=== PATIENT | female | born 1990 | race Caucasian/White ===

== ENCOUNTER → 2018-07-17 13:44 | Outpatient (CLI) | payer OTHER, SELFPAY ==
--- NOTE | 2018-07-17 13:46 | DI.US.S_ITS ---
PROCEDURE: US PELVIC COMPLETE INDICATIONS: RIGHT SIDE PELVIC PAIN TECHNIQUE: Real-time scanning was performed of the pelvic organs, with image documentation. Additional endovaginal scanning was necessary due to incomplete visualization of the adnexal and endometrial structures by transabdominal scanning. COMPARISON: None. FINDINGS: Transabdominal scanning: Limited scanning through the kidneys shows no hydronephrosis. No pathologic free abdominal or pelvic fluid. Endovaginal scanning: Uterus: Uterus is normal in size at 3.8 x 3.9 x 7.3 cm, anteverted. The endometrium measures 4.0 mm in combined thickness. Ovaries: Right ovary measures 2.4 x 1.1 x 1.8 cm and the left measures 1.8 x 1.2 x 1.6 cm. IMPRESSION: Source of current pelvic pain is not identified. Anteverted normal appearing uterus, normal appearing ovaries. Dictated by: Magdy Cazares M.D. on 07/17/2018 at 16:24 Approved by: Magdy Cazares M.D. on 07/17/2018 at 16:24
== END ==
PROVIDERS: Family Provider Family Medicine; PCP Family Medicine
DX: R10.2 Pelvic and perineal pain (principal); Z87.42 Personal history of other diseases of the female genital tract
CPT/HCPCS: 76830; 76856

== ENCOUNTER → 2018-11-06 15:15 | Outpatient (CLI) | payer OTHER, SELFPAY ==
[2018-11-06 15:58] LABS: Add Manual Diff / Slide Review NO; Basophils Absolute Auto 0 /uL (0-100); Basophils Percent Auto 0.5 % (0-2); Eosinophils Absolute Auto 100 /uL (0-450); Eosinophils Percent Auto 0.8 % (2-4); Hematocrit 36.9 % (36-46); Hemoglobin 12.2 g/dL (12.0-16.0); Lymphocytes Absolute Auto 3300 /uL (1100-4500); Lymphocytes Percent Auto 46.4 % (25-40); Mean Corpuscular HGB Conc 33.1 % (30-36); Mean Corpuscular Hemoglobin 26.7 PG (26-34); Mean Corpuscular Volume 80.6 fL (80-100); Monocytes Absolute Auto 400 /uL (0-900); Monocytes Percent Auto 6.2 % (3-14); Neutrophils Absolute Auto 3300 /uL (1500-7000); Neutrophils Percent Auto 46.1 % (50-75); Platelet Count 195 X10^3/uL (150-400); Red Blood Cell Count 4.57 X10^6/uL (4.0-5.2); Red Cell Distribution Width 15.6 % (11.6-14.8); White Blood Cell Count 7.2 X10^3/uL (4.5-11.0)
[2018-11-06 16:19] LABS: Alanine Aminotransferase 39 IU/L (9-52); Albumin 4.1 g/dL (3.5-5.0); Albumin Globulin Ratio 1.3 (1.0-2.8); Alkaline Phosphatase 43 U/L (38-126); Aspartate Aminotransferase 21 IU/L (14-36); BUN Creatinine Ratio 24.3 (6-22); Bilirubin Total 0.3 mg/dL (0.2-1.3); Blood Urea Nitrogen 17 mg/dL (7-17); Calcium 9.1 mg/dL (8.4-10.2); Carbon Dioxide 25 mmol/L (22-32); Chloride 102 mmol/L (98-107); Cholesterol 175 mg/dL (140-199); Estimated Glomerular Filt Rate > 60.0 mL/min (>60); Gamma Glutamyl Transpeptidase 23 U/L (12-43); Globulin 3.2 g/dL (1.7-4.1); Glucose 97 mg/dL (70-100); HDL Cholesterol 63 mg/dL (40-60); HEMOLYSIS < 15 (0-50); LDL Cholesterol Calculated 82 mg/dL (<100); Potassium 4.2 mmol/L (3.4-5.1); Sodium 138 mmol/L (137-145); Total Protein 7.3 g/dL (6.3-8.2); Triglycerides 150 mg/dL (35-150)
[2018-11-06 16:24] LABS: Erythrocyte Sedimentation Rate 40 MM/HR (0-20)
[2018-11-06 16:35] LABS: Follicle Stimulating Hormone 1.37 mIU/mL; HCG Quantitative /Beta subunit < 2.39 mIU/mL
[2018-11-06 16:36] LABS: Vitamin D 25 Hydroxy (D3) 27.2 ng/mL (30.0-100.0)
[2018-11-06 16:50] LABS: TSH w/ Reflex to FT4 1.96 uIU/mL (0.47-4.68)
== END ==
PROVIDERS: Family Provider Student in an Organized Health Care Education/Training Program; Visit Provider Student in an Organized Health Care Education/Training Program
DX: N92.6 Irregular menstruation, unspecified (principal); R10.9 Unspecified abdominal pain; Z13.220 Encounter for screening for lipoid disorders
CPT/HCPCS: 36415; 80053; 80061; 82306; 82977; 83001; 84443; 84702; 85025; 85651

== ENCOUNTER → 2018-11-18 15:17 | Outpatient (CLI) | payer OTHER, SELFPAY ==
--- NOTE | 2018-11-18 15:19 | DI.CT.S_ITS ---
PROCEDURE: CT ABDOMEN PELVIS WO CON INDICATIONS: Abdominal pain TECHNIQUE: Noncontrast 5 mm thick sections acquired from the diaphragms to the symphysis. 5 mm coronal and sagittal reformats were then performed. For radiation dose reduction, the following was used: automated exposure control, adjustment of mA and/or kV according to patient size. COMPARISON: None. FINDINGS: Image quality: Limited by the absence of both oral and intravenous contrast. ABDOMEN: Lung bases: Lung bases are clear. Heart size is normal. Solid organs: Liver is normal in size. Gallbladder has been previously resected. Pancreas is normal in contours. Spleen is normal in size. No adrenal nodules. Kidneys are normal in size, without hydronephrosis or nephrolithiasis. Peritoneum and bowel: Unenhanced bowel loops demonstrate normal wall thickness and caliber. No free fluid or air. Nodes and vessels: No retroperitoneal or mesenteric adenopathy by size criteria. Aorta and inferior vena cava are normal in caliber. Miscellaneous: No ventral hernias. PELVIS: Genitourinary: Bladder wall thickness is normal. Miscellaneous: No inguinal hernias or adenopathy. Bones: No suspicious bony lesions. No vertebral body compression fractures. IMPRESSION: Normal appendix right lower quadrant. Prior cholecystectomy. A definite source of abdominal pain is not seen. Dictated by: Magdy Cazares M.D. on 11/18/2018 at 16:52 Approved by: Magdy Cazares M.D. on 11/18/2018 at 16:53
== END ==
PROVIDERS: Family Provider Student in an Organized Health Care Education/Training Program; Visit Provider Student in an Organized Health Care Education/Training Program
DX: R10.9 Unspecified abdominal pain (principal); N92.6 Irregular menstruation, unspecified; Z90.49 Acquired absence of other specified parts of digestive tract
CPT/HCPCS: 74176

== ENCOUNTER → 2018-12-24 20:41 | Outpatient (REF) | payer OTHER, SELFPAY ==
[2018-12-28 15:47] LABS: HSV 1 IgM Screen Negative (Negative); HSV 2 IgM Screen Negative (Negative)
== END ==
LOC: LAB 20:41
PROVIDERS: Family Provider Student in an Organized Health Care Education/Training Program; Visit Provider Physician Assistant
DX: R21 Rash and other nonspecific skin eruption (principal)
CPT/HCPCS: 86694

== ENCOUNTER → 2020-12-19 16:44 | Outpatient (CLI) | payer OTHER, SELFPAY ==
[2020-12-19] MEDS: COVID-19 VACC #1, MRNA(MOD) 100 MCG/0.5 ML VIAL IM (16:52)
== END ==
PROVIDERS: Family Provider Student in an Organized Health Care Education/Training Program; PCP Student in an Organized Health Care Education/Training Program; Visit Provider Internal Medicine
DX: Z23 Encounter for immunization (principal)
CPT/HCPCS: 0011A; 91301

== ENCOUNTER → 2021-01-17 16:22 | Outpatient (CLI) | payer OTHER, SELFPAY ==
[2021-01-17] MEDS: COVID-19 VACC #2, MRNA(MOD) 100 MCG/0.5 ML VIAL IM (16:30)
== END ==
PROVIDERS: Family Provider Student in an Organized Health Care Education/Training Program; PCP Student in an Organized Health Care Education/Training Program; Visit Provider Internal Medicine
DX: Z23 Encounter for immunization (principal)
CPT/HCPCS: 0012A; 91301

== ENCOUNTER → 2021-11-23 08:51 | Outpatient (CLI) | payer OTHER, SELFPAY ==
[2021-11-23 10:06] LABS: Hemoglobin A1C% w Est Avg Glu 5.5 % (4.0-6.0)
[2021-11-23 10:16] LABS: Add Manual Diff / Slide Review NO; Basophils Absolute Auto 0 /uL (0-100); Basophils Percent Auto 0.6 % (0-2); Eosinophils Absolute Auto 100 /uL (0-450); Eosinophils Percent Auto 1.2 % (2-4); Hematocrit 39.6 % (36-46); Hemoglobin 12.7 g/dL (12.0-16.0); Lymphocytes Absolute Auto 2800 /uL (1100-4500); Lymphocytes Percent Auto 39.3 % (25-40); Mean Corpuscular Hemoglobin 25.6 PG (26-34); Mean Corpuscular Volume 79.8 fL (80-100); Monocytes Absolute Auto 300 /uL (0-900); Monocytes Percent Auto 4.7 % (3-14); Neutrophils Absolute Auto 3900 /uL (1500-7000); Neutrophils Percent Auto 54.2 % (50-75); Platelet Count 220 X10^3/uL (150-400); Red Blood Cell Count 4.95 X10^6/uL (4.0-5.2); Red Cell Distribution Width 14.5 % (11.6-14.8); White Blood Cell Count 7.2 X10^3/uL (4.5-11.0)
[2021-11-23 10:43] LABS: TSH w/ Reflex to FT4 2.29 uIU/mL (0.47-4.68)
[2021-11-24 09:22] LABS: Rubeola Measles IgG > 300.0 AU/mL (Immune >16.4); Varicella IgG Antibody 269 index (Immune >165)
[2021-11-24 11:07] LABS: Mumps Virus IgG Antibody 39.9 AU/mL (Immune >10.9)
[2021-11-26 15:33] LABS: Rubella Antibody IgG 17.9 IU/mL (>15)
== END ==
PROVIDERS: Family Provider Student in an Organized Health Care Education/Training Program; PCP Student in an Organized Health Care Education/Training Program; Referring Provider Obstetrics & Gynecology; Visit Provider Obstetrics & Gynecology
DX: Z31.69 Encounter for other general counseling and advice on procreation (principal)
CPT/HCPCS: 36415; 83036; 84443; 85025; 86735; 86762; 86765; 86787